=== PATIENT | female | born 1930 | race Two or more races ===

== ENCOUNTER 2018-12-28 09:46 | Outpatient (RCR) | payer MEDICARE, MEDICAID | END 2019-01-14 | disposition home or self-care (01) | LOC: WCC 09:46 | DX: L97.822 Non-pressure chronic ulcer of other part of left lower leg with fat layer exposed (principal); I83.028 Varicose veins of left lower extremity with ulcer other part of lower leg; I11.9 Hypertensive heart disease without heart failure; E11.9 Type 2 diabetes mellitus without complications; Z95.0 Presence of cardiac pacemaker | CPT/HCPCS: G0463 ==